=== PATIENT | female | born 1995 | race Caucasian/White ===

== ENCOUNTER 2016-10-18 20:10 | Observation (INO) | payer OTHER ==
[~2016-10-18] VITALS: Ht 175.3 cm; Wt 68.0 kg
[2016-10-18 20:11] VITALS: BP 137/84; PULSE 136; RESP 18; TEMP 100.4; O2SAT 98
--- NOTE | 2016-10-18 20:44 | PD ---
HPI Chief Complaint: SIRS Time Seen by Provider: 20:28 Travel History International Travel<30 days: No Contact w/Intl Traveler<30days: No Traveled to known affect area: No History of Present Illness HPI 21yo F with no PMH presents to the ED with c/o right lower abdominal pain for 1 week. States it is constant and sometimes goes down her leg. Also with nausea and chills. Pt started having left sided frontal headache today. + Photophobia. Denies any vomiting, chest pain, sob, urinary complaints. Pt has generalized muscle pain. PFSH Past Medical History Medical History: Denies Significant Hx ?: Not : 0 Past Surgical History Surgical History: No Previous Surgery Social History Alcohol Use: No Tobacco Use: No Substance Use: No Allergies-Medications (Allergen,Severity, Reaction): Coded Allergies: No Known Allergies (Unverified , 10/18/16) Reported Meds & Prescriptions Reported Meds & Active Scripts Active No Active Prescriptions or Reported Medications Review of Systems Except as stated in HPI: all other systems reviewed are Neg Physical Exam Narrative GENERAL: 21yo F in mild distress. SKIN: Focused skin assessment warm/dry. HEAD: Atraumatic. Normocephalic. Mild ttp left temporal region. EYES: Pupils equal and round at 4mm bilaterally. EOMI. No scleral icterus. No injection or drainage. ENT: Throat: Clear. Ears: TM wnl bilaterally. NECK: Trachea midline. No JVD. No nuchal rigidity. CARDIOVASCULAR: Regular rate and rhythm. No murmur appreciated. RESPIRATORY: No accessory muscle use. Clear to auscultation. Breath sounds equal bilaterally. GASTROINTESTINAL: Abdomen soft,+TTP suprapubic region. Mild ttp RLQ. No rebound tenderness or guarding. PELVIC: Small amount of white vaginal discharge. No CMT or adnexal tenderness bilaterally. MUSCULOSKELETAL: No obvious deformities. No clubbing. No cyanosis. No edema. NEUROLOGICAL: Awake and alert. No obvious cranial nerve deficits. Motor grossly within normal limits. Normal speech. PSYCHIATRIC: Appropriate mood and affect; insight and judgment normal. Data Data Last Documented VS Vital Signs Date Time Temp Pulse Resp B/P Pulse Ox O2 Delivery O2 Flow Rate FiO2 10/19/16 00:23 Room Air 10/18/16 21:42 101 18 137/87 97 10/18/16 20:11 100.4 Orders Blood Culture (10/18/16 20:37) Complete Blood Count With Diff (10/18/16 20:37) Comprehensive Metabolic Panel (10/18/16 20:37) Prothrombin Time / Inr (Pt) (10/18/16 20:37) Act Partial Throm Time (Ptt) (10/18/16 20:37) Lactic Acid Sepsis Protocol (10/18/16 20:37) Sodium Chlor 0.9% 1000 Ml Inj (Ns 1000 M (10/18/16 20:45) Acetaminophen (Tylenol) (10/18/16 20:45) Ondansetron Inj (Zofran Inj) (10/18/16 20:45) Ketorolac Inj (Toradol Inj) (10/18/16 20:45) Influenzae A/B Antigen (10/18/16 20:37) Lipase (10/18/16 20:44) Ed Urine Pregnancytest Poc (10/18/16 20:49) Vancomycin Inj (Vancomycin Inj) (10/18/16 22:15) Piperacil-Tazo 3.375 Gm Premix (Zosyn 3. (10/18/16 22:15) Ct Abd/Pel W Iv Contrast(Rout) (10/18/16 ) Iohexol 350 Inj (Omnipaque 350 Inj) (10/18/16 23:55) Urinalysis - C+S If Indicated (10/18/16 23:59) Complete Blood Count With Diff (10/19/16 00:41) Gc And Chlamydia Pcr (10/19/16 01:13) Wet Prep Profile (10/19/16 01:13) Admit Order (Ed Use Only) (10/19/16 02:14) Labs Laboratory Tests Test 10/18/16 10/18/16 10/19/16 10/19/16 20:47 23:17 00:48 01:16 White Blood Count 1.9 TH/MM3 1.7 TH/MM3 Red Blood Count 5.18 MIL/MM3 4.50 MIL/MM3 Hemoglobin 15.0 GM/DL 13.0 GM/DL Hematocrit 43.1 % 37.4 % Mean Corpuscular Volume 83.3 FL 83.1 FL Mean Corpuscular Hemoglobin 29.0 PG 28.9 PG Mean Corpuscular Hemoglobin 34.8 % 34.8 % Concent Red Cell Distribution Width 13.4 % 13.5 % Platelet Count 56 TH/MM3 52 TH/MM3 Mean Platelet Volume 9.3 FL 9.4 FL Neutrophils (%) (Auto) % % Lymphocytes (%) (Auto) % % Monocytes (%) (Auto) % % Eosinophils (%) (Auto) % % Basophils (%) (Auto) % % Neutrophils # (Auto) TH/MM3 TH/MM3 Lymphocytes # (Auto) TH/MM3 TH/MM3 Monocytes # (Auto) TH/MM3 TH/MM3 Eosinophils # (Auto) TH/MM3 TH/MM3 Basophils # (Auto) TH/MM3 TH/MM3 CBC Comment AUTO DIFF AUTO DIFF Differential Total Cells 100 100 Counted Neutrophils % (Manual) 48 % 39 % Band Neutrophils % 20 % 11 % Lymphocytes % 16 % 28 % Monocytes % 14 % 21 % Basophils % 1 % Neutrophils # (Manual) 1.3 TH/MM3 0.9 TH/MM3 Metamyelocytes 1 % 1 % Differential Comment FINAL DIFF FINAL DIFF MANUAL MANUAL Platelet Estimate LOW LOW Platelet Morphology Comment NORMAL ENLARGED Red Cell Morphology Comment NORMAL Prothrombin Time 12.7 SEC Prothromb Time International 1.1 RATIO Ratio Activated Partial 35.0 SEC Thromboplast Time Sodium Level 134 MEQ/L Potassium Level 3.8 MEQ/L Chloride Level 100 MEQ/L Carbon Dioxide Level 25.3 MEQ/L Anion Gap 9 MEQ/L Blood Urea Nitrogen 8 MG/DL Creatinine 0.72 MG/DL Estimat Glomerular Filtration 100 ML/MIN Rate Random Glucose 117 MG/DL Lactic Acid Level 1.1 mmol/L Calcium Level 8.9 MG/DL Total Bilirubin 0.5 MG/DL Aspartate Amino Transf 11 U/L (AST/SGOT) Alanine Aminotransferase 15 U/L (ALT/SGPT) Alkaline Phosphatase 62 U/L Total Protein 7.7 GM/DL Albumin 4.2 GM/DL Lipase 109 U/L Urine Color YELLOW Urine Turbidity CLEAR Urine pH 5.5 Urine Specific [place] 1.009 Urine Protein NEG mg/dL Urine Glucose (UA) NEG mg/dL Urine Ketones 40 mg/dL Urine Occult Blood SMALL Urine Nitrite NEG Urine Bilirubin NEG Urine Urobilinogen LESS THAN 2.0 MG/DL Urine Leukocyte Esterase MOD Urine RBC 2 /hpf Urine WBC 4 /hpf Urine Squamous Epithelial 3 /hpf Cells Urine Bacteria RARE /hpf Microscopic Urinalysis Comment CULT NOT INDICATED Clue Cells (Wet Prep) PRESENT Vaginal Trichomonas (Wet Prep) NONE SEEN Vaginal Yeast (Wet Prep) NONE SEEN Chlamydia trachomatis DNA NOT DETECTED (PCR) Neisseria gonorrhoeae DNA NOT DETECTED (PCR) MDM Medical Decision Making Medical Screen Exam Complete: Yes Emergency Medical Condition: Yes Interpretation(s) Laboratory Tests Test 10/18/16 10/18/16 10/19/16 10/19/16 20:47 23:17 00:48 01:16 White Blood Count 1.9 TH/MM3 1.7 TH/MM3 (4.0-11.0) (4.0-11.0) Red Blood Count 5.18 MIL/MM3 4.50 MIL/MM3 (4.00-5.30) (4.00-5.30) Hemoglobin 15.0 GM/DL 13.0 GM/DL (11.6-15.3) (11.6-15.3) Hematocrit 43.1 % 37.4 % (35.0-46.0) (35.0-46.0) Mean Corpuscular Volume 83.3 FL 83.1 FL (80.0-100.0) (80.0-100.0) Mean Corpuscular Hemoglobin 29.0 PG 28.9 PG (27.0-34.0) (27.0-34.0) Mean Corpuscular Hemoglobin 34.8 % 34.8 % Concent (32.0-36.0) (32.0-36.0) Red Cell Distribution Width 13.4 % 13.5 % (11.6-17.2) (11.6-17.2) Platelet Count 56 TH/MM3 52 TH/MM3 (150-450) (150-450) Mean Platelet Volume 9.3 FL 9.4 FL (7.0-11.0) (7.0-11.0) Neutrophils (%) (Auto) % (16.0-70.0) % (16.0-70.0) Lymphocytes (%) (Auto) % (9.0-44.0) % (9.0-44.0) Monocytes (%) (Auto) % (0.0-8.0) % (0.0-8.0) Eosinophils (%) (Auto) % (0.0-4.0) % (0.0-4.0) Basophils (%) (Auto) % (0.0-2.0) % (0.0-2.0) Neutrophils # (Auto) TH/MM3 TH/MM3 (1.8-7.7) (1.8-7.7) Lymphocytes # (Auto) TH/MM3 TH/MM3 (1.0-4.8) (1.0-4.8) Monocytes # (Auto) TH/MM3 (0-0.9) TH/MM3 (0-0.9) Eosinophils # (Auto) TH/MM3 (0-0.4) TH/MM3 (0-0.4) Basophils # (Auto) TH/MM3 (0-0.2) TH/MM3 (0-0.2) CBC Comment AUTO DIFF AUTO DIFF Differential Total Cells 100 100 Counted Neutrophils % (Manual) 48 % (16-70) 39 % (16-70) Band Neutrophils % 20 % (0-6) 11 % (0-6) Lymphocytes % 16 % (9-44) 28 % (9-44) Monocytes % 14 % (0-8) 21 % (0-8) Basophils % 1 % (0-2) Neutrophils # (Manual) 1.3 TH/MM3 0.9 TH/MM3 (1.8-7.7) (1.8-7.7) Metamyelocytes 1 % (0-1) 1 % (0-1) Differential Comment FINAL DIFF FINAL DIFF MANUAL MANUAL Platelet Estimate LOW (NORMAL) LOW (NORMAL) Platelet Morphology Comment NORMAL ENLARGED (NORMAL) (NORMAL) Red Cell Morphology Comment NORMAL (NORMAL) Prothrombin Time 12.7 SEC (9.8-11.6) Prothromb Time International 1.1 RATIO Ratio Activated Partial 35.0 SEC Thromboplast Time (24.3-30.1) Sodium Level 134 MEQ/L (136-145) Potassium Level 3.8 MEQ/L (3.5-5.1) Chloride Level 100 MEQ/L (98-107) Carbon Dioxide Level 25.3 MEQ/L (21.0-32.0) Anion Gap 9 MEQ/L (5-15) Blood Urea Nitrogen 8 MG/DL (7-18) Creatinine 0.72 MG/DL (0.50-1.00) Estimat Glomerular Filtration 100 ML/MIN Rate (>89) Random Glucose 117 MG/DL (74-106) Lactic Acid Level 1.1 mmol/L (0.4-2.0) Calcium Level 8.9 MG/DL (8.5-10.1) Total Bilirubin 0.5 MG/DL (0.2-1.0) Aspartate Amino Transf 11 U/L (15-37) (AST/SGOT) Alanine Aminotransferase 15 U/L (10-53) (ALT/SGPT) Alkaline Phosphatase 62 U/L (45-117) Total Protein 7.7 GM/DL (6.4-8.2) Albumin 4.2 GM/DL (3.4-5.0) Lipase 109 U/L (73-393) Urine Color YELLOW (YELLW/STRAW) Urine Turbidity CLEAR (CLEAR) Urine pH 5.5 (5.0-8.5) Urine Specific [place] 1.009 (1.002-1.035) Urine Protein NEG mg/dL (NEG-TRACE) Urine Glucose (UA) NEG mg/dL (NEG) Urine Ketones 40 mg/dL (NEG) Urine Occult Blood SMALL (NEG) Urine Nitrite NEG (NEG) Urine Bilirubin NEG (NEG) Urine Urobilinogen LESS THAN 2.0 MG/DL (LESS THAN 2.0) Urine Leukocyte Esterase MOD (NEG) Urine RBC 2 /hpf (0-3) Urine WBC 4 /hpf (0-5) Urine Squamous Epithelial 3 /hpf (0-5) Cells Urine Bacteria RARE /hpf (NONE) Microscopic Urinalysis Comment CULT NOT INDICATED Clue Cells (Wet Prep) PRESENT (NONE) Vaginal Trichomonas (Wet Prep) NONE SEEN (NONE) Vaginal Yeast (Wet Prep) NONE SEEN (NONE) Chlamydia trachomatis DNA NOT DETECTED (PCR) (NOT DETECT) Neisseria gonorrhoeae DNA NOT DETECTED (PCR) (NOT DETECT) Last Impressions Chest X-Ray 10/19/16 0000 Signed Impressions: Service Date/Time: Wednesday, October 19, 2016 02:32 - CONCLUSION: No evidence of acute cardiopulmonary disease. Jose C Cerna MD Abdomen/Pelvis CT 10/18/16 0000 Signed Impressions: Service Date/Time: Tuesday, October 18, 2016 23:53 - CONCLUSION: 1. No appendicitis or other acute inflammatory changes. 2. Mildly complex 18 mm cyst of the right ovary. Followup pelvic ultrasound is suggested in 8-12 weeks to confirm resolution. 3. Mild scoliosis. Jose C Cerna MD Differential Diagnosis Influenza vs. sinus headache vs. migraine headache vs. cystitis vs. appendicitis Narrative Course 21yo F with multiple complaints. Pt has been having abdominal pain for 1 week and then developed headache. Pt has a mild temperature of 100.4 with HR of 136 at triage. When she arrived in the medical bed, her heart rate was 102bpm. Pt is nontoxic appearing and I do not feel that pt has bacterial meningitis after examining her. Will check labs, UA and give toradol, IVF, zofran and reevaluate. Pt reevaluated after acetaminophen 650mg, zofran and toradol 30mg IV and states headache has resolved. States abdominal pain has improved but pt still has RLQ tenderness on exam so will do CTa/p to r/o appendicitis. I did speak to patient 's insurance regarding my reasons for ordering the CT scan prior to ordering it at the patient's request since she has [place] insurance. Influenza negative. Labs reviewed, WBC is 1.9 and she has 20% bandemia. Pt is also thrombocytopenic with platelet count of 56,000. Lactic acid 1.1. Lipase 109. UA showed moderate leukocyte but WBC is 4 and culture is not indicated. CTa/p showed no appendicitis or any other acute inflammatory changes. Mildly complex 18mm cyst of right ovary. Follow up pelvic ultrasound is suggested in 8-12 weeks to confirm resolution. I repeated CBC just to make sure it was not a lab error and the results were similar to first. I also performed a bedside pelvic exam after negative CT scan. Although pt denies any vaginal discharge, there was a small amount of white discharge and sent for culture. No CMT. Will admit for sepsis. Critical Care Narrative Aggregate critical care time was 45 minutes. Time to perform other separately billable procedures was not included in the critical care time. My time did not include minutes spent treating any other patients simultaneously or on activities that did not directly contribute to the patient's treatment. The services I provided to this patient were to treat and/or prevent clinically significant deterioration that could result in: cardiovascular collapse or . I provided critical care services requiring my management, as noted below: Chart data review, documentation time, medication orders and management, vital sign assessments/reviewing monitor data, ordering and reviewing lab tests, ordering and interpreting/reviewing x- rays and diagnostic studies, care of the aptient and discussion of the patient with the admitting physicians. Diagnosis Primary Impression: Sepsis Qualified Code: A41.9 - Sepsis, due to unspecified organism Admitting Information Admitting Physician Requests: Admit Scripts No Active Prescriptions or Reported Meds Roseann Florian DO Oct 18, 2016 20:44
[2016-10-18] MEDS ORDERED: KETOROLAC TROMETHAMINE 30 MG/ML (IVP) VIAL IV PUSH ONE (20:45)
[2016-10-18] MEDS ORDERED: ONDANSETRON HCL 4 MG/2 ML VIAL IV PUSH ONE (20:45)
[2016-10-18] MEDS ORDERED: ACETAMINOPHEN 325 MG TAB PO ONE (20:45)
[2016-10-18] MEDS ORDERED: SODIUM CHLOR 0.9% 1000 ML INJ 1,000 ML IV ONE (20:45)
[2016-10-18 21:12] LABS: HEMATOCRIT 43.1 % (35.0-46.0); MEAN CELL VOLUME 83.3 FL (80.0-100.0); MEAN CORPUSCULAR HGB CONC 34.8 % (32.0-36.0); PLATELET COUNT 56 TH/MM3 (150-450); RED BLOOD COUNT 5.18 MIL/MM3 (4.00-5.30); RED CELL DISTRIBUTION WIDTH 13.4 % (11.6-17.2); WHITE BLOOD COUNT 1.9 TH/MM3 (4.0-11.0)
[2016-10-18 21:24] LABS: INTERNATIONAL NORMALIZED RATIO 1.1 RATIO; PROTHROMBIN TIME - PATIENT 12.7 SEC (9.8-11.6)
[2016-10-18 21:41] LABS: ANION GAP 9 MEQ/L (5-15); AST (GOT) 11 U/L (15-37); BICARBONATE 25.3 MEQ/L (21.0-32.0); BLOOD UREA NITROGEN 8 MG/DL (7-18); CHLORIDE 100 MEQ/L (98-107); GLOMERULAR FILTRATION RATE 100 ML/MIN (>89); POTASSIUM 3.8 MEQ/L (3.5-5.1); SODIUM (NA) 134 MEQ/L (136-145)
[2016-10-18 21:42] VITALS: BP 137/87; PULSE 101; RESP 18; O2SAT 97
[2016-10-18 21:44] LABS: ALKALINE PHOSPHATASE 62 U/L (45-117); ALT (GPT) 15 U/L (10-53); TOTAL BILIRUBIN ADULT 0.5 MG/DL (0.2-1.0)
[2016-10-18 21:45] LABS: HEMO FLAGS AUTO DIFF
[2016-10-18 21:49] LABS: BANDS 20 % (0-6); BASOPHILS 1 % (0-2); METAMYELOCYTES 1 % (0-1); NEUTROPHIL # MANUAL DIFF 1.3 TH/MM3 (1.8-7.7); PLATELET ESTIMATE SMEAR LOW (NORMAL); PLATELET MORPHOLOGY NORMAL (NORMAL); POLYS (SEG NEUTROPHILS) 48 % (16-70); SCAN/DIFF FINAL DIFF MANUAL; WBC DIFF SAMPLE 100
[2016-10-18] MEDS ORDERED: VANCOMYCIN INJ 1,000 MG in SODIUM CHLOR 0.9% 250 ML INJ 250 ML IV ONE (22:15)
[2016-10-18] MEDS ORDERED: PIPERACIL-TAZO 3.375 GM PREMIX 50 ML IV ONE (22:15)
[2016-10-18] MEDS ORDERED: IOHEXOL 350 MG/ML 10 ML VIAL (for RAD DIAG) IV ONE (23:55)
[2016-10-19] VITALS (7 sets, daily range): BP systolic 98–114; BP diastolic 56–66; PULSE 60–103; RESP 16–20; TEMP 97.5–98.8; O2SAT 97–100
--- NOTE | 2016-10-19 00:14 | RADRPT ---
EXAM DATE/TIME: 10/18/2016 23:53 [facility] COMPARISON: No previous studies available for comparison. INDICATIONS : Right lower quadrant abdominal pain X 3 days. IV CONTRAST: 97 cc Omnipaque 350 (iohexol) IV ORAL CONTRAST: No oral contrast ingested. RADIATION DOSE: 7.71 CTDIvol (mGy) MEDICAL HISTORY : None SURGICAL HISTORY : None. ENCOUNTER: Initial ACUITY: 3 days PAIN SCALE: 7/10 LOCATION: Right lower quadrant TECHNIQUE: Volumetric scanning of the abdomen and pelvis was performed. Using automated exposure control and ad justment of the mA and/or kV according to patient size, radiation dose was kept as low as reasonably achievable to obtain optimal diagnostic quality images. FINDINGS: LOWER LUNGS: The visualized lower lungs are clear. LIVER: Homogeneous density without lesion. There is no dilation of the biliary tree. No calcified gallston es. SPLEEN: Normal size without lesion. PANCREAS: Within normal limits. KIDNEYS: Normal in size and shape. There is no mass, stone or hydronephrosis. ADRENAL GLANDS: Within normal limits. VASCULAR: There is no aortic aneurysm. BOWEL/MESENTERY: The stomach, small bowel, and colon demonstrate no acute abnormality. There is no free intraperitone al air or fluid. The appendix is well-visualized, normal. ABDOMINAL WALL: Within normal limits. RETROPERITONEUM: There is no lymphadenopathy. BLADDER: No wall thickening or mass. REPRODUCTIVE: There is an 18 mm rim-enhancing and mildly septated cysts of the right ovary. Uterus and left adnexal region within normal limits. There is trace free fluid in the pelvic cul-de-sac, within physiologic limits for a patient this age. INGUINAL: There is no lymphadenopathy or hernia. MUSCULOSKELETAL: No acute bony abnormality demonstrated. A mild dextroconvex curvature is seen of the spine. CONCLUSION: 1. No appendicitis or other acute inflammatory changes. 2. Mildly complex 18 mm cyst of the right ovary. Followup pelvic ultrasound is suggested in 8-12 week s to confirm resolution. 3. Mild scoliosis. Jose C Cerna MD on October 19, 2016 at 0:08 Board Certified Radiologist. This report was verified electronically.
[2016-10-19 00:23] LABS: BACTERIA, URINE RARE /hpf; BLOOD, URINE SMALL (NEG); COMMENT (UR) CULT NOT INDICATED; CULTURE IF INDICATED CULT NOT INDICATED; GLUCOSE,URINE NEG (NEG); KETONE, URINE 40 mg/dL (NEG); NITRITE,URINE NEG (NEG); PH, URINE 5.5 (5.0-8.5); SQUAMOUS EPITHELIAL CELL URINE 3 /hpf (0-5); URINE COLOR YELLOW (YELLW/STRAW)
[2016-10-19 01:52] LABS: HEMATOCRIT 37.4 % (35.0-46.0); MEAN CELL VOLUME 83.1 FL (80.0-100.0); MEAN CORPUSCULAR HEMOGLOBIN 28.9 PG (27.0-34.0); MEAN CORPUSCULAR HGB CONC 34.8 % (32.0-36.0); PLATELET COUNT 52 TH/MM3 (150-450); RED CELL DISTRIBUTION WIDTH 13.5 % (11.6-17.2); WHITE BLOOD COUNT 1.7 TH/MM3 (4.0-11.0)
[2016-10-19 01:57] LABS: HEMO FLAGS AUTO DIFF
[2016-10-19] MEDS ORDERED: ONDANSETRON HCL 4 MG/2 ML VIAL IVP PRN (02:30)
[2016-10-19] MEDS ORDERED: ACETAMINOPHEN 325 MG TAB PO PRN (02:30)
[2016-10-19] MEDS ORDERED: SODIUM CHLORIDE 0.9% FLUSH 10 ML FLUSH IV FLUSH PRN (02:30)
[2016-10-19] MEDS ORDERED: Vancomycin Consult Pharmacy 1 EA OTHER SCH (02:30)
[2016-10-19] MEDS ORDERED: NALOXONE HCL 0.4 MG/ML AMP IV PRN (02:30)
[2016-10-19 02:33] LABS: BANDS 11 % (0-6); METAMYELOCYTES 1 % (0-1); NEUTROPHIL # MANUAL DIFF 0.9 TH/MM3 (1.8-7.7); POLYS (SEG NEUTROPHILS) 39 % (16-70); WBC DIFF SAMPLE 100
[2016-10-19 02:34] LABS: PLATELET ESTIMATE SMEAR LOW (NORMAL); PLATELET MORPHOLOGY ENLARGED (NORMAL); SCAN/DIFF FINAL DIFF MANUAL
[2016-10-19] MEDS: SODIUM CHLOR 0.9% 1000 ML INJ 1,000 ML IV SCH ×3 (02:45→20:34)
[2016-10-19] MEDS: PIPERACIL-TAZO 3.375 GM PREMIX 50 ML IV SCH ×4 (02:46→20:33)
--- NOTE | 2016-10-19 03:27 | RADRPT ---
EXAM DATE/TIME: 10/19/2016 02:32 [facility] COMPARISON: No previous studies available for comparison. INDICATIONS : Sepsis. MEDICAL HISTORY : None. SURGICAL HISTORY : None. ENCOUNTER: Initial ACUITY: 1 day PAIN SCORE: 0/10 LOCATION: Bilateral chest FINDINGS: A single view of the chest demonstrates the lungs to be symmetrically aerated without evidence of mas s, infiltrate or effusion. The cardiomediastinal contours are unremarkable. Osseous structures are intact. CONCLUSION: No evidence of acute cardiopulmonary disease. Jose C Cerna MD on October 19, 2016 at 3:25 Board Certified Radiologist. This report was verified electronically.
--- NOTE | 2016-10-19 03:39 | HHI.HP ---
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 Patient reports she was in her normal state of health until approximately one week ago when she began having intermittent right lower quadrant abdominal pain. Patient describes the pain as, "coming and going in waves," when it comes it is moderate to severe and feels that a stabbing sensation lasting approximally 5 minutes and then resolved spontaneously. Patient does admit to a new sexual partner approximately 2 weeks ago. Last menstrual period approximally one month ago. 0 para 0. Urine screen negative Patient also complains of, "migraine headache," for the past 2 days. Patient describes the headache as a throbbing sensation located mostly on the left side of her head. The headache is worsened by light and she has noticed a difficulty in, "focusing." Headache associated with cold sweats and nausea but no vomiting. Headache has since resolved after receiving Toradol in emergency department. Patient denies specific fevers, chills, vomiting, diarrhea, constipation, shortness of breath, chest pain or changes on diet. Upon arrival patient's temperature was 100.4 pulse 136 respiratory rate 18 blood pressure 137/84 pulse oximetry 98% on room air Review of Systems Except as stated in HPI: all other systems reviewed are Neg Past Family Social History Past Medical History Denies significant past medical history 0 para 0 Last menstrual period approximately one month ago, urine test negative in ED Past Surgical History Denies prior surgical intervention Reported Medications Reports she takes no medications on a daily basis Allergies: Coded Allergies: No Known Allergies (Unverified , 10/18/16) Active Ordered Medications Current Medications Medications (Trade) Dose Ordered Sig/Earline Route Start Time Stop Time Status Last Admin (NS 1000 ml Inj) 1,000 ml @ 100 mls/hr Q10H IV 10/19/16 02:28 10/19/16 02:45 (NS Flush) 2 ml UNSCH PRN IV FLUSH 10/19/16 02:30 (NS Flush) 2 ml BID IV FLUSH 10/19/16 09:00 (Tylenol) 650 mg Q4H PRN PO 10/19/16 02:30 (Zofran Inj) 4 mg Q6H PRN IVP 10/19/16 02:30 Naloxone HCl 0.4 mg 0.4 mg UNSCH PRN IV 10/19/16 02:30 Pharmacy Profile Note 0 ml @ 0 mls/hr UNSCH OTHER 10/19/16 02:30 (Zosyn 3.375 Gm Premix) 50 ml @ 100 mls/hr Q6H IV 10/19/16 04:00 10/19/16 02:46 Family History Mother and father both alive and healthy with no medical problems. Patient denies family medical history including CAD diabetes and cancer Social History Patient reports he lives in an apartment alone is currently a college student Reports occasional social tobacco use Reports social EtOH use not, daily basis Denies illicit drug use Physical Exam Vital Signs Vital Signs Date Time Temp Pulse Resp B/P Pulse Ox O2 Delivery O2 Flow Rate FiO2 10/18/16 21:42 101 18 137/87 97 Room Air 10/18/16 20:28 Room Air 10/18/16 20:11 100.4 136 18 137/84 98 Physical Exam GENERAL: This is a well-nourished, well-developed patient, in no apparent distress. SKIN: No rashes, ecchymoses or lesions. Cool and dry. HEAD: Atraumatic. Normocephalic. No temporal or scalp tenderness. EYES: Extraocular motions intact. No scleral icterus. No injection or drainage. ENT: Nose without bleeding, purulent drainage or septal hematoma. Throat without erythema, tonsillar hypertrophy or exudate. Uvula midline. Airway patent. NECK: Trachea midline. No JVD or lymphadenopathy. Supple, nontender, no meningeal signs. CARDIOVASCULAR: Regular rate and rhythm without murmurs, gallops, or rubs. RESPIRATORY: Clear to auscultation. Breath sounds equal bilaterally. No wheezes , rales, or rhonchi. GASTROINTESTINAL: Abdomen soft, tender to palpation bilateral lower quadrants right greater than left, nondistended. MUSCULOSKELETAL: Extremities without clubbing, cyanosis, or edema. No joint tenderness, effusion, or edema noted. No calf tenderness. Negative Homans sign bilaterally. NEUROLOGICAL: Awake and alert. No focal deficits appreciated. Motor and sensory grossly within normal limits. Five out of 5 muscle strength in all muscle groups. Normal speech. Laboratory Laboratory Tests Test 10/18/16 10/18/16 10/19/16 10/19/16 20:47 23:17 00:48 01:16 White Blood Count 1.9 1.7 Red Blood Count 5.18 4.50 Hemoglobin 15.0 13.0 Hematocrit 43.1 37.4 Mean Corpuscular Volume 83.3 83.1 Mean Corpuscular Hemoglobin 29.0 28.9 Mean Corpuscular Hemoglobin 34.8 34.8 Concent Red Cell Distribution Width 13.4 13.5 Platelet Count 56 52 Mean Platelet Volume 9.3 9.4 Neutrophils (%) (Auto) Lymphocytes (%) (Auto) Monocytes (%) (Auto) Eosinophils (%) (Auto) Basophils (%) (Auto) Neutrophils # (Auto) Lymphocytes # (Auto) Monocytes # (Auto) Eosinophils # (Auto) Basophils # (Auto) CBC Comment AUTO DIFF AUTO DIFF Differential Total Cells 100 100 Counted Neutrophils % (Manual) 48 39 Band Neutrophils % 20 11 Lymphocytes % 16 28 Monocytes % 14 21 Basophils % 1 Neutrophils # (Manual) 1.3 0.9 Metamyelocytes 1 1 Differential Comment FINAL DIFF FINAL DIFF MANUAL MANUAL Platelet Estimate LOW LOW Platelet Morphology Comment NORMAL ENLARGED Red Cell Morphology Comment NORMAL Prothrombin Time 12.7 Prothromb Time International 1.1 Ratio Activated Partial 35.0 Thromboplast Time Sodium Level 134 Potassium Level 3.8 Chloride Level 100 Carbon Dioxide Level 25.3 Anion Gap 9 Blood Urea Nitrogen 8 Creatinine 0.72 Estimat Glomerular Filtration 100 Rate Random Glucose 117 Lactic Acid Level 1.1 Calcium Level 8.9 Total Bilirubin 0.5 Aspartate Amino Transf 11 (AST/SGOT) Alanine Aminotransferase 15 (ALT/SGPT) Alkaline Phosphatase 62 Total Protein 7.7 Albumin 4.2 Lipase 109 Urine Color YELLOW Urine Turbidity CLEAR Urine pH 5.5 Urine Specific [place] 1.009 Urine Protein NEG Urine Glucose (UA) NEG Urine Ketones 40 Urine Occult Blood SMALL Urine Nitrite NEG Urine Bilirubin NEG Urine Urobilinogen LESS THAN 2.0 Urine Leukocyte Esterase MOD Urine RBC 2 Urine WBC 4 Urine Squamous Epithelial 3 Cells Urine Bacteria RARE Microscopic Urinalysis Comment CULT NOT INDICATED Clue Cells (Wet Prep) PRESENT Vaginal Trichomonas (Wet Prep) NONE SEEN Vaginal Yeast (Wet Prep) NONE SEEN Date/Time Procedure Status Source Growth 10/18/16 20:47 Influenza Types A,B Antigen (GAY) - Final Complete Nasal Aspirate NEGATIVE FOR FLU A AND B ANTIGEN.... 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 Patient reports she was in her normal state of health until approximately one week ago when she began having intermittent right lower quadrant abdominal pain. Patient also complains of, "migraine headache," for the past 2 days. Upon arrival patient's temperature was 100.4 pulse 136 respiratory rate 18 blood pressure 137/84 pulse oximetry 98% on room air Abdominal/pelvis CT reviewed no appendicitis or other acute inflammatory change , mild complex 18 mm cyst on the right ovary follow-up pelvic ultrasound was adjusted in 8-12 weeks to confirm resolution. Mild scoliosis Patient needs SIRS criteria (heart rate 136, white blood cell count 1.9, 20% band neutrophils) Patient started on vancomycin as well as Zosyn and emergency department will continue Chest x-ray pending UA reviewed no culture indicated Headache- possible migraine Resolved after Toradol will continue Toradol as needed Right lower quadrant abdominal pain CT of the head reviewed and reveals: no appendicitis or other acute inflammatory change, mild complex 18 mm cyst on the right ovary follow-up pelvic ultrasound was adjusted in 8-12 weeks to confirm resolution. Mild scoliosis Pelvic exam by ER physician: Vaginal trismus is negative, vaginal use negative, clue cells present and high Gonorrhea and Chlamydia pending Leukopenia with thrombocytopenia- recheck in AM may require further evaluation DVT prophylaxis with SCDs Discussed the care provider, nursing and patient Debbie Carmen Oct 19, 2016 03:39
[2016-10-19 06:36] LABS: CHLAMYDIA PCR NOT DETECTED (NOT DETECT); NEISSERIA PCR NOT DETECTED (NOT DETECT)
--- NOTE | 2016-10-19 08:23 | HHI.PR ---
Subjective Remarks Follow-up for sepsis, bacterial vaginosis. Patient reports feeling better today , just tired. Denies any abdominal pain, nausea/vomiting, constipation/ diarrhea. Afebrile overnight. She denies any headache today. She does report slightly decreased appetite. Denies any dysuria or urinary complaints. She has no other medical complaints at this time. Objective Vitals Vital Signs Date Time Temp Pulse Resp B/P Pulse Ox O2 Delivery O2 Flow Rate FiO2 10/19/16 07:06 98.1 83 16 106/57 99 10/19/16 04:00 97.5 87 20 99/66 100 10/19/16 03:35 97 10/19/16 00:23 Room Air 10/18/16 21:42 101 18 137/87 97 Room Air 10/18/16 20:28 Room Air 10/18/16 20:11 100.4 136 18 137/84 98 Result Diagram: 10/19/16 0048 10/18/162046 Imaging Last Impressions Chest X-Ray 10/19/16 0000 Signed Impressions: Service Date/Time: Wednesday, October 19, 2016 02:32 - CONCLUSION: No evidence of acute cardiopulmonary disease. Jose C Cerna MD Abdomen/Pelvis CT 10/18/16 0000 Signed Impressions: Service Date/Time: Tuesday, October 18, 2016 23:53 - CONCLUSION: 1. No appendicitis or other acute inflammatory changes. 2. Mildly complex 18 mm cyst of the right ovary. Followup pelvic ultrasound is suggested in 8-12 weeks to confirm resolution. 3. Mild scoliosis. Jose C Cerna MD Objective Remarks GENERAL: Well-nourished, well-developed young female patient in [facility]. SKIN: Warm and dry. No rash. HEENT: Normocephalic. Atraumatic. Pupils equal and round. Mucous membranes pink and moist. NECK: Supple. Trachea midline. CARDIOVASCULAR: Regular rate and rhythm. S1, S2 noted. No murmur appreciated. RESPIRATORY: No accessory muscle use. Clear to auscultation. Breath sounds equal bilaterally. GASTROINTESTINAL: Abdomen soft, non-tender, nondistended. Normoactive bowel sounds x4. MUSCULOSKELETAL: No obvious deformities. Extremities without clubbing, cyanosis , or edema. NEUROLOGICAL: Awake and alert. No obvious cranial nerve deficits. Motor grossly within normal limits. Normal speech. PSYCHIATRIC: Appropriate mood and affect; insight and judgment normal. Medications and IVs Current Medications Medications (Trade) Dose Ordered Sig/Earline Route Start Time Stop Time Status Last Admin (NS 1000 ml Inj) 1,000 ml @ 100 mls/hr Q10H IV 10/19/16 02:28 10/19/16 02:45 (NS Flush) 2 ml UNSCH PRN IV FLUSH 10/19/16 02:30 (NS Flush) 2 ml BID IV FLUSH 10/19/16 09:00 (Tylenol) 650 mg Q4H PRN PO 10/19/16 02:30 (Zofran Inj) 4 mg Q6H PRN IVP 10/19/16 02:30 Naloxone HCl 0.4 mg 0.4 mg UNSCH PRN IV 10/19/16 02:30 Pharmacy Profile Note 0 ml @ 0 mls/hr UNSCH OTHER 10/19/16 02:30 (Zosyn 3.375 Gm Premix) 50 ml @ 100 mls/hr Q6H IV 10/19/16 04:00 10/19/16 02:46 Urinary Catheter: No Vascular Central Line Catheter: No A/P Problem List: (1) Abdominal pain ICD Code: R10.9 Status: Acute (2) Headache ICD Code: R51 Status: Acute Assessment and Plan 21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 Patient reports she was in her normal state of health until approximately one week ago when she began having intermittent right lower quadrant abdominal pain. Patient also complains of, "migraine headache," for the past 2 days. Upon arrival patient's temperature was 100.4 pulse 136 RR 18 blood pressure 137/84 pulse oximetry 98% on room air SIRS (Temp 100.4, HR 136, leukopenia WBC 1.9K, 20% band neutrophils) with possible sepsis, unclear source, possibly PID vs Bacterial Vaginosis Patient started on vancomycin as well as Zosyn in ED, will continue for now CXR and UA unremarkable monitor blood cultures, no growth in 1 day repeat CBC in the am Headache- possible migraine, Resolved after Toradol will continue Toradol as needed Right lower quadrant abdominal pain: Abdominal/pelvis CT reviewed no appendicitis or other acute inflammatory change, mild complex 18 mm cyst on the right ovary follow-up pelvic ultrasound was adjusted in 8-12 weeks to confirm resolution. Pelvic exam by ER physician. Vaginal trismus is negative clue cells present and high, trichomonas/yeast negative Gonorrhea and Chlamydia negative. Continue antibiotics as above Bacterial Vaginosis: clue cells seen on wet prep as above start on Flagyl 500mg po bid x1week Leukopenia with thrombocytopenia: possibly secondary to acute infection monitor CBC DVT prophylaxis with SCDs Discussed with Dr. Blair. Emerald Hull PA-C Oct 19, 2016 8:23 am
[2016-10-19] MEDS: SODIUM CHLORIDE 0.9% FLUSH 10 ML FLUSH IV FLUSH SCH ×2 (09:00→19:59)
[2016-10-19] MEDS: VANCOMYCIN 1,000 MG/NS 250 ML IV SCH ×4 (09:11→18:36)
[2016-10-19] MEDS: metroNIDAZOLE 500 MG TAB PO SCH ×2 (16:03→20:33)
[2016-10-20] MEDS ORDERED: diphenhydrAMINE HCL 25 MG CAP PO ONE (00:15)
[2016-10-20] MEDS: VANCOMYCIN 1,000 MG/NS 250 ML IV SCH ×4 (02:57→10:55)
[2016-10-20] MEDS: PIPERACIL-TAZO 3.375 GM PREMIX 50 ML IV SCH ×2 (04:09→10:00)
[2016-10-20 05:22] VITALS: BP 113/61; PULSE 85; RESP 18; TEMP 98.7; O2SAT 97
[2016-10-20 08:02] LABS: HEMATOCRIT 37.9 % (35.0-46.0); MEAN CELL VOLUME 82.5 FL (80.0-100.0); MEAN CORPUSCULAR HEMOGLOBIN 28.8 PG (27.0-34.0); PLATELET COUNT 61 TH/MM3 (150-450); RED BLOOD COUNT 4.59 MIL/MM3 (4.00-5.30); RED CELL DISTRIBUTION WIDTH 13.4 % (11.6-17.2)
[2016-10-20 08:06] LABS: HEMO FLAGS AUTO DIFF
--- NOTE | 2016-10-20 08:15 | HHI.PR ---
Subjective Remarks Follow up for SIRS, bacterial vaginosis. The patient reports feeling better today however still weak and tired. Denies any fevers/chills, abdominal pain, nausea/vomiting. She has no other medical complaints at this time. She agrees to HIV testing. Objective Vitals Vital Signs Date Time Temp Pulse Resp B/P Pulse Ox O2 Delivery O2 Flow Rate FiO2 10/20/16 05:22 98.7 85 18 113/61 97 10/19/16 23:58 98.8 98 18 111/66 100 10/19/16 19:24 98.1 103 18 114/56 98 10/19/16 17:13 98.2 97 16 108/59 100 10/19/16 10:54 98.2 60 16 98/60 97 Result Diagram: 10/20/16 0730 10/18/162046 Imaging Last Impressions Chest X-Ray 10/19/16 0000 Signed Impressions: Service Date/Time: Wednesday, October 19, 2016 02:32 - CONCLUSION: No evidence of acute cardiopulmonary disease. Jose C Cerna MD Abdomen/Pelvis CT 10/18/16 0000 Signed Impressions: Service Date/Time: Tuesday, October 18, 2016 23:53 - CONCLUSION: 1. No appendicitis or other acute inflammatory changes. 2. Mildly complex 18 mm cyst of the right ovary. Followup pelvic ultrasound is suggested in 8-12 weeks to confirm resolution. 3. Mild scoliosis. Jose C Cerna MD Objective Remarks GENERAL: Well-nourished, well-developed young female patient in [facility]. SKIN: Warm and dry. No rash. HEENT: Normocephalic. Atraumatic. Pupils equal and round. Mucous membranes pink and moist. NECK: Supple. Trachea midline. CARDIOVASCULAR: Regular rate and rhythm. S1, S2 noted. No murmur appreciated. RESPIRATORY: No accessory muscle use. Clear to auscultation. Breath sounds equal bilaterally. GASTROINTESTINAL: Abdomen soft, non-tender, nondistended. Normoactive bowel sounds x4. MUSCULOSKELETAL: No obvious deformities. Extremities without clubbing, cyanosis , or edema. NEUROLOGICAL: Awake and alert. No obvious cranial nerve deficits. Motor grossly within normal limits. Normal speech. PSYCHIATRIC: Appropriate mood and affect; insight and judgment normal. Medications and IVs Current Medications Medications (Trade) Dose Ordered Sig/Earline Route Start Time Stop Time Status Last Admin (NS 1000 ml Inj) 1,000 ml @ 100 mls/hr Q10H IV 10/19/16 02:28 10/19/16 20:34 (NS Flush) 2 ml UNSCH PRN IV FLUSH 10/19/16 02:30 (NS Flush) 2 ml BID IV FLUSH 10/19/16 09:00 (Tylenol) 650 mg Q4H PRN PO 10/19/16 02:30 (Zofran Inj) 4 mg Q6H PRN IVP 10/19/16 02:30 Naloxone HCl 0.4 mg 0.4 mg UNSCH PRN IV 10/19/16 02:30 Pharmacy Profile Note 0 ml @ 0 mls/hr UNSCH OTHER 10/19/16 02:30 Piperacillin Sod/ Tazobactam Sod 50 ml @ 100 mls/hr Q6H IV 10/19/16 04:00 10/20/16 04:09 (Vancomycin Inj/ NS 250 ml Inj) 250 ml @ 250 mls/hr Q8H IV 10/19/16 10:00 10/20/16 02:57 Miscellaneous Information SPECIFIC LAB TO BE DRAWN:VANCOMY... 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 Patient reports she was in her normal state of health until approximately one week ago when she began having intermittent right lower quadrant abdominal pain. Patient also complains of, "migraine headache," for the past 2 days. Upon arrival patient's temperature was 100.4 pulse 136 RR 18 blood pressure 137/84 pulse oximetry 98% on room air SIRS (Temp 100.4, HR 136, leukopenia WBC 1.9K, 20% band neutrophils) with possible sepsis, unclear source, possibly PID vs Bacterial Vaginosis Influenza negative Patient started on vancomycin as well as Zosyn in ED, will continue for now CXR and UA unremarkable Monitor blood cultures, no growth in 2 days repeat CBC today shows improvement WBC 1.7 --> 3.0. SIRS resolved, stable for discharge Headache- possible migraine, Resolved after Toradol will continue Toradol as needed Right lower quadrant abdominal pain: Abdominal/pelvis CT reviewed no appendicitis or other acute inflammatory change, mild complex 18 mm cyst on the right ovary follow-up pelvic ultrasound was adjusted in 8-12 weeks to confirm resolution. Pelvic exam by ER physician. clue cells present and high, trichomonas/yeast negative Gonorrhea and Chlamydia negative. Continue antibiotics Bacterial Vaginosis: clue cells seen on wet prep as above start on Flagyl 500mg po bid x1week Leukopenia with thrombocytopenia: possibly secondary to acute infection monitor CBC, improving check for HIV, discussed with the patient, will call her with results when available DVT prophylaxis with SCDs Discussed with Dr. Blair. Discharge Planning Discharge patient to home Condition on discharge: Improved Regular Diet as tolerated [employer] activity Rx written: Flagyl 500mg po bid x6 days (7days total) Follow-up with primary care physician within 1 week Emerald Hull PA-C October 20, 2016 08:15
[2016-10-20 08:26] LABS: BICARBONATE 27.4 MEQ/L (21.0-32.0); POTASSIUM 3.3 MEQ/L (3.5-5.1)
[2016-10-20] MEDS: SODIUM CHLORIDE 0.9% FLUSH 10 ML FLUSH IV FLUSH SCH (08:33)
[2016-10-20 08:40] LABS: BANDS 6 % (0-6); NEUTROPHIL # MANUAL DIFF 1.1 TH/MM3 (1.8-7.7); POLYS (SEG NEUTROPHILS) 30 % (16-70); WBC DIFF SAMPLE 100
[2016-10-20 08:41] LABS: PLATELET ESTIMATE SMEAR LOW (NORMAL); PLATELET MORPHOLOGY NORMAL (NORMAL); SCAN/DIFF FINAL DIFF MANUAL
[2016-10-20 08:45] VITALS: BP 113/74; PULSE 92; RESP 17; TEMP 98; O2SAT 100
[2016-10-20] MEDS: metroNIDAZOLE 500 MG TAB PO SCH (09:39)
[2016-10-20] MEDS ORDERED: PHARMACY ORDERED LAB ONE (09:45)
[2016-10-20] MEDS ORDERED: POTASSIUM CHLORIDE 20 MEQ CONTROLLED RELEASE TAB PO ONE (10:00)
[2016-10-20] MEDS: SODIUM CHLOR 0.9% 1000 ML INJ 1,000 ML IV SCH (10:56)
[2016-10-20 12:32] VITALS: BP 89/53; PULSE 85; RESP 23; TEMP 98.4; O2SAT 97
[2016-10-20] MEDS ORDERED: METR-1 PO (13:43)
--- NOTE | 2016-10-20 13:44 | HHI.DCPOC ---
Discharge Care Plan Diagnosis: (1) Sepsis (2) Bacterial vaginosis (3) Abdominal pain Goals to Promote Your Health * To prevent worsening of your condition and complications * To maintain your health at the optimal level Directions to Meet Your Goals Take your medications as prescribed Follow your dietary instruction Follow activity as directed Keep your appointments as scheduled Take your immunizations and boosters as scheduled If your symptoms worsen call your PCP, if no PCP go to Urgent Care Center or Emergency Room Smoking is Dangerous to Your Health. Avoid second hand smoke Call the 24-hour hour crisis hotline for domestic abuse at Emerald Hull PA-C October 20, 2016 13:44
[2016-10-20 14:00] VITALS: BP 98/62
[2016-10-20] MEDS ORDERED: VANCOMYCIN INJ 1,250 MG in SODIUM CHLOR 0.9% 250 ML INJ 250 ML IV SCH (18:00)
[2016-10-22] MEDS ORDERED: PHARMACY ORDERED LAB ONE (01:45)
== END 2016-10-20 15:26 | disposition home or self-care (01) ==
LOC: NEPE 20:10 → NEDA 10-19 02:15 → NEPGCP 10-19 03:46
PROVIDERS: ADMIT Internal Medicine; ATTEND Internal Medicine
DX: N76.0 Acute vaginitis (principal); R10.31 Right lower quadrant pain; R68.83 Chills (without fever); R11.0 Nausea; R51 Headache; D69.6 Thrombocytopenia, unspecified; N83.201 Unspecified ovarian cyst, right side; A41.9 Sepsis, unspecified organism; D72.819 Decreased white blood cell count, unspecified
CPT/HCPCS: 71010; 74177; 80048; 80053; 80202; 81001; 83605; 83690; 84703; 85007; 85027; 85610; 85730; 86703; 87040; 87210; 87491; 87591; 87804; 96361; 96365; 96366; 96367; 96375; 99291; G0378; J1885; J2405; J2543; J3370; J7030; J7050; Q9967